=== PATIENT | female | born 1985 | race Caucasian/White ===

== ENCOUNTER 2019-05-25 14:33 | Inpatient (IN) | payer MEDICAID, SELFPAY ==
[2019-05-28 06:00] VITALS: BP 112/76; PULSE 92; RESP 17; TEMP 36.8; O2SAT 98
[2019-05-28] MEDS: CLONazepam 1 mg Tablet PO ×3 (10:37→21:01)
[2019-05-28] MEDS: levETIRAcetam 500 mg Tablet PO ×2 (10:37→17:36)
[2019-05-28] MEDS: sertraline 50 mg Tablet PO (10:37)
[2019-05-28] MEDS: acetaminophen 325 mg Tablet 650 MG PO (13:28)
[2019-05-28] MEDS: loperamide 2 mg Capsule 4 MG PO (13:28)
[2019-05-28 14:00] VITALS: BP 120/85; PULSE 116; RESP 20; TEMP 36.7; O2SAT 91
--- NOTE | 2019-05-28 17:08 | PM.NPN ---
Subjective NPU Subjective: Interval history: The patient presents today reporting that she is doing fine. She reports that she had struggled with not having her medication and she came in and that has been taken care of. She is back on the medication and adjusting to those medications slowly. She reports that she currently finds herself homeless and that her plan is to get into an inpatient psychiatric facility. We were able to further discuss that and tease out that she means and [facility] or a Residential Treatment Facility of some sort. We discussed the fact that, generally speaking, that takes time and is not something that is done quickly or even during a hospitalization. Her response to that was that if she leaves here she will be homeless. She reports that she talked to an Nilsa, at [facility], and [place], and they reportedly told her that they may have a spot for her, that she could return to. We discussed the risks, benefits, and alternatives of working with social work to tease that out, but also, we discussed that fact that her insurance would not allow her to stay inpatient, waiting for that bed, just because she has nowhere else to go. So she needs to start looking at what options she can do for the short run, even if that is the plan for discharge. She reports that she is tolerating the medication. We agreed that I would explore what the time frame was since her last increase in the Zoloft, and titrate if appropriate. Mental Status Exam MSE Comments: This is a morbidly obese, white female, with adequate dress, and limited grooming and eye contact. No abnormal movements, except for psychomotor retardation. Cooperative with exam in no acute distress. Speech was decreased rate and volume. Mood described as depressed; affect congruent. Thought process, organized. Thought content: patient denied any suicidal or homicidal ideation, there were no delusions reported or noted, patient denied any auditory or visual hallucinations. Attention, concentration, and memory appeared intact but were not formally tested. Alert and oriented times three. Insight and judgment are limited. Vitals/I&O/Wt Last Vital Signs Temp 98.0 F 05/28/19 14:00 Pulse 116 H 05/28/19 14:00 Resp 20 H 05/28/19 14:00 BP 120/85 05/28/19 14:00 Pulse Ox 91 05/28/19 14:00 Weight last 48 hrs Weight 181.437 kg A&P Additional A&P Information Additional A&P Information: This is a 33 year old, white female, with schizophrenia versus schizoaffective disorder, depressed type, post traumatic stress disorder, and possibly some Cluster B pathology, who presents with her medications reestablished, with reports of lessening of any auditory hallucinations, but concerned about the next step after discharge from inpatient hospitalization. Continue current medication. Will wait but likely increase Zoloft tomorrow. Encourage individual, group, and milieu therapy. Continue q 15-minute checks. Will work with social work to explore whether [facility], or any options exist for Ada that will not be time averse. Involuntary Hold Information 96 Hour Hold: 96 Hour Involuntary Admission: No Attestations NPU Medical Necessity Statement*: Inpatient hospitalization is medically necessary and the clinically appropriate intervention at this time. We will continue to monitor medications and titrate to effect. Likely length of stay is two to four days. Coding Level of Care Code Acute Controls Design Engineer for Jaye Rascon
[2019-05-28 20:20] VITALS: BP 111/71; PULSE 106; RESP 21; TEMP 36.6; O2SAT 91
[2019-05-28] MEDS: prazosin 5 mg Capsule 10 MG PO (21:01)
[2019-05-28] MEDS: mirtazapine 30 mg Tablet PO (21:01)
[2019-05-29 06:00] VITALS: BP 123/75; PULSE 103; RESP 24; TEMP 36.6; O2SAT 91
[2019-05-29] MEDS: CLONazepam 1 mg Tablet PO ×3 (08:42→20:54)
[2019-05-29] MEDS: levETIRAcetam 500 mg Tablet PO ×2 (08:42→17:43)
[2019-05-29] MEDS: sertraline 50 mg Tablet PO (08:42)
--- NOTE | 2019-05-29 13:05 | P.PN_ITS ---
Subjective NPU Subjective: Interval history: Ada presents today reporting that things are going okay. She endorses some lingering depression but has worries about placement. She reports that she called [facility] in [place] and endorsed that they say that her returning is a possibility. Treatment team work to make a connection on that issue now that the holidays are over. She reports she spoke to an Renea. Otherwise we discussed the fact that it would take time for her to adjust the medication and get the desired effect Mental Status Exam MSE Comments: This is a morbidly obese, white female, with adequate dress, and limited grooming and eye contact. No abnormal movements, except for psychomotor retardation. Cooperative with exam in no acute distress. Speech was decreased rate and volume. Mood described as crappy; affect congruent. Thought process, organized. Thought content: patient denied any suicidal or homicidal ideation, there were no delusions reported or noted, patient denied any auditory or visual hallucinations. Attention, concentration, and memory appeared intact but were not formally tested. Alert and oriented times three. Insight and judgment are limited. Vitals/I&O/Wt Last Vital Signs Temp 97.8 F 05/29/19 19:49 Pulse 94 05/29/19 19:49 Resp 21 H 05/29/19 19:49 BP 107/66 05/29/19 19:49 Pulse Ox 91 05/29/19 19:49 A&P Additional A&P Information Additional A&P Information: This is a 33 year old, white female, with schizophrenia versus schizoaffective disorder, depressed type, post traumatic stress disorder, and possibly some Cluster B pathology, who presents with her medications reestablished, with reports of lessening of any auditory hallucinations, but concerned about the next step after discharge from inpatient hospitalization. Continue current medication. Consider increase in Zoloft tomorrow. Encourage individual, group, and milieu therapy. Continue q 15-minute checks. Will work with social work to explore whether [facility], or any options exist for Ada that will not be time averse. Involuntary Hold Information 96 Hour Hold: 96 Hour Involuntary Admission: No Attestations NPU Medical Necessity Statement*: Inpatient hospitalization is medically necessary and the clinically appropriate intervention at this time. We will monitor the medications which have been reinstated. We will work with the outpatient resources for possible placement hopefully avoiding her having to have a period of homelessness. Likely length of stay 2 to 4 days. Coding Level of Care Code Acute Fight Manager for Jaye Rascon
[2019-05-29 14:00] VITALS: BP 137/86; PULSE 111; RESP 20; TEMP 37.2; O2SAT 93
[2019-05-29 19:49] VITALS: BP 107/66; PULSE 94; RESP 21; TEMP 36.6; O2SAT 91
[2019-05-29] MEDS: mirtazapine 30 mg Tablet PO (20:54)
[2019-05-29] MEDS: prazosin 5 mg Capsule 10 MG PO (20:54)
[2019-05-30 06:00] VITALS: BP 136/87; PULSE 103; RESP 21; TEMP 36.6; O2SAT 91
[2019-05-30] MEDS: levETIRAcetam 500 mg Tablet PO ×2 (08:21→17:09)
[2019-05-30] MEDS: CLONazepam 1 mg Tablet PO ×3 (08:21→22:18)
--- NOTE | 2019-05-30 10:11 | PC.SOCIAL ---
Patient did not attend morning group.
[2019-05-30] MEDS: loperamide 2 mg Capsule 4 MG PO (12:39)
[2019-05-30 12:58] VITALS: BP 112/74; PULSE 94; RESP 19; TEMP 36.4; O2SAT 92
[2019-05-30 13:00] VITALS: BP 112/74; PULSE 94; RESP 19; TEMP 36.4; O2SAT 92
--- NOTE | 2019-05-30 15:31 | PM.NPN ---
Subjective NPU Subjective: Interval history: Ada presents today reporting that she is optimistic that [facility] did not turn her down but she is feeling depressed today because she is thinking about the fact Sunday as her son's birthday and she lost parental rights to home to [facility]. She reports that she has other children there with her mom in [place]. She reports that she is having some serious axis X show thinking. Wondering what she don't do with her life moving forward. Not wanting to make some of the same mistakes she's made thus far and really in her head today. She reports she is eating fine and sleeping okay. Mental Status Exam MSE Comments: This is a morbidly obese, white female, with adequate dress, and limited grooming and eye contact. For hygiene to some degree is unclear she showered. No abnormal movements, except for psychomotor retardation. Cooperative with exam in mild distress. Speech was decreased rate and volume. Mood described as depressed; affect congruent and tearful. Thought process, organized. Thought content: patient denied any suicidal or homicidal ideation, there were no delusions reported or noted, patient denied any auditory or visual hallucinations. Attention, concentration, and memory appeared intact but were not formally tested. She is Alert and oriented times three. Insight and judgment are limited. 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 Continue current medication. Consider increase in medication Encourage individual, group, and milieu therapy. Continue q 15-minute checks. Will work with social work to explore whether [facility], or any options exist for Ada that will not be time averse. Involuntary Hold Information 96 Hour Hold: 96 Hour Involuntary Admission: No Attestations NPU Medical Necessity Statement*: Inpatient hospitalization is medically necessary and the clinically appropriate intervention at this time. We will monitor the medications which have been reinstated. We will work with the outpatient resources for possible placement hopefully avoiding her having to have a period of homelessness. Likely length of stay 2 to 4 days. Hopefully decision-makers will be available on Sunday and we can discharge Sunday or Sunday likely. Coding Level of Care Code Acute Plastic Tubing Insulation Supervisor for g Fwd Diagnoses Cluster B personality disorder F60.89 Schizoaffective disorder F25.9
[2019-05-30 20:13] VITALS: BP 100/63; PULSE 92; RESP 18; TEMP 36.9; O2SAT 95
[2019-05-30] MEDS: prazosin 5 mg Capsule 10 MG PO (22:18)
[2019-05-30] MEDS: mirtazapine 30 mg Tablet PO (22:18)
[2019-05-31 06:00] VITALS: BP 121/78; PULSE 87; RESP 20; TEMP 37; O2SAT 91
[2019-05-31] MEDS: CLONazepam 1 mg Tablet PO ×3 (09:23→20:45)
[2019-05-31] MEDS: levETIRAcetam 500 mg Tablet PO ×2 (09:23→17:42)
[2019-05-31 12:37] VITALS: BP 99/64; PULSE 98; RESP 20; TEMP 36.4; O2SAT 91
--- NOTE | 2019-05-31 16:35 | P.PN_ITS ---
Subjective NPU Subjective: Interval history: Ada presents today reporting that she has had a tough day today. She reports that she has been struggling with voices but as we further delved into the voices they appear to represent more negative self talk and self-loathing. The voices tell her to herself, showed up, you're worthless and things of that nature. We talked about the underpinnings of complicated trauma and personality disorders and the importance of doing homework and psychotherapy in getting through these things. We discussed the fact that often medications can set up a framework where in a person can begin to make changes real work is in these cognitive therapeutic sessions. She reports otherwise she was to return to [facility] because she feels that she did well there and that they were set up like that. We discussed the phone call we need to make with [facility] on Sunday. Mental Status Exam MSE Comments: This is a morbidly obese, white female, with adequate dress, and limited grooming and eye contact. Poor hygiene to some degree is unclear she has showered yet during this stay. No abnormal movements, except for psychomotor retardation. Cooperative with exam in mild distress. Speech was decreased rate and volume. Mood described as depressed; affect congruent and subdued. Thought process, organized. Thought content: patient denied any suicidal or homicidal ideation, there were no delusions reported or noted, patient denied visual but endorsed auditory hallucinations but it is unclear whether that is accurate or represents negative self talk were negative internal dialogue. Attention, concentration, and memory appeared intact but were not formally tested. She is Alert and oriented times three. Insight and judgment are limited. 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 Continue current medication. Consider increase in medication Encourage individual, group, and milieu therapy. Continue q 15-minute checks. Will work with social work to explore whether [facility], or any options exist for Ada that will not be time averse. Involuntary Hold Information 96 Hour Hold: 96 Hour Involuntary Admission: No Attestations NPU Medical Necessity Statement*: Inpatient hospitalization is medically necessary and the clinically appropriate intervention at this time. We will monitor the medications and titrate to effect We will work with the outpatient resources for possible placement hopefully avoiding her having to have a period of homelessness. Likely length of stay 2 to 4 days. Hopefully decision-makers will be available on Sunday and we can discharge Sunday or Sunday likely. Coding Level of Care Code Acute Road Engineer for Jaye Rascon
[2019-05-31 19:31] VITALS: BP 146/91; PULSE 97; RESP 17; TEMP 36.6; O2SAT 93
[2019-05-31] MEDS: mirtazapine 30 mg Tablet PO (20:45)
[2019-05-31] MEDS: prazosin 5 mg Capsule 10 MG PO (20:46)
[2019-06-01 06:00] VITALS: BP 136/83; PULSE 73; RESP 18; TEMP 36.6; O2SAT 92
[2019-06-01] MEDS: levETIRAcetam 500 mg Tablet PO ×2 (08:59→17:31)
[2019-06-01] MEDS: CLONazepam 1 mg Tablet PO ×3 (09:12→21:11)
[2019-06-01 13:45] VITALS: BP 117/77; PULSE 95; RESP 20; TEMP 36.4; O2SAT 91
--- NOTE | 2019-06-01 16:35 | PM.NPN ---
Subjective NPU Subjective: Interval history: Ada presented today reporting that there had been no significant changes since yesterday. She does not seem to be lingering more of the issue of her son like she had the day before. She seemed to be fairly focused on getting to tomorrow being able to possibly talk to [facility] and move forward with her life. She reports that she is eating and sleeping fine. Mental Status Exam MSE Comments: This is a morbidly obese, white female, with adequate dress, and limited grooming and eye contact. Limited hygiene. No abnormal movements, except for psychomotor retardation. Cooperative with exam in no acute distress. Speech was decreased rate and volume. Mood described as no change; affect congruent and subdued. Thought process, organized. Thought content: patient denied any suicidal or homicidal ideation, there were no delusions reported or noted, patient denied visual but endorsed auditory hallucinations but it is unclear whether that is accurate or represents negative self talk were negative internal dialogue. Attention, concentration, and memory appeared intact but were not formally tested. She is Alert and oriented times three. Insight and judgment are limited. Vitals/I&O/Wt Last Vital Signs Temp 97.6 F 06/01/19 13:45 Pulse 95 06/01/19 13:45 Resp 20 H 06/01/19 13:45 BP 117/77 06/01/19 13:45 Pulse Ox 91 06/01/19 13:45 Weight last 48 hrs Weight 170.641 kg Weight 170.641 kg Weight 170.641 kg A&P Additional A&P Information Additional A&P Information: Additional A&P Information: This is a 33 year old, white female, with schizophrenia versus schizoaffective disorder, depressed type, post traumatic stress disorder, and some Cluster B pathology, who presents with her medications reestablished, with reports of lessening of any auditory hallucinations, but concerned about the next step after discharge from inpatient hospitalization. Continue current medication. Consider increase in medication Encourage individual, group, and milieu therapy. Continue q 15-minute checks. Will work with social work to explore whether [facility], or any options exist for Ada that will not be time averse. Involuntary Hold Information 96 Hour Hold: 96 Hour Involuntary Admission: No Attestations NPU Medical Necessity Statement*: Inpatient hospitalization is medically necessary and the clinically appropriate intervention at this time. We will monitor the medications and titrate to effect We will work with the outpatient resources for possible placement hopefully avoiding her having to have a period of homelessness. Likely length of stay 1-3 days. Hopefully decision-makers will be available on Sunday and we can discharge Sunday or Sunday likely. Coding Level of Care Code Acute Bait Tier for Jaye Rascon
--- NOTE | 2019-06-01 19:18 | XRR_ITS ---
PROCEDURE INFORMATION: Exam: XR Left Humerus Exam date and time: 06/01/2019 8:04 PM Age: 33 years old Clinical indication: Injury or trauma; Fall; Initial encounter; Abrasion; Arm, upper; Left TECHNIQUE: Imaging protocol: XR Left humerus Views: 2 or more views. COMPARISON: No relevant prior studies available. FINDINGS: Bones/joints: No acute fracture. No dislocation. Normal bone mineralization. No joint effusion. Joint spaces are maintained. Lungs: The visualized left lung is clear. Soft tissues: No soft tissue swelling. No radiopaque foreign body. XR/[place] [id number] IMPRESSION: No acute fracture. Followup imaging recommended in 7-14 days if clinical concern for fracture persists.
--- NOTE | 2019-06-01 19:21 | XRR_ITS ---
PROCEDURE INFORMATION: Exam: XR Cervical Spine, 2 or 3 Views Exam date and time: 06/01/2019 8:04 PM Age: 33 years old Clinical indication: Injury or trauma; Fall; Initial encounter; Abrasion TECHNIQUE: Imaging protocol: XR of the cervical spine, 2 or 3 views. COMPARISON: No relevant prior studies available. FINDINGS: Vertebrae: The cervical spine is visualized to the C6-C7 intervertebral disc space level on the lateral image. There is no acute fracture in the visualized cervical spine, however injury in the lower cervical spine and cervicothoracic junction cannot be ruled out. Lungs: Visualized lungs are clear. Soft tissues: No soft tissue swelling. No radiopaque foreign body. XR/XR cervical spine 2V* [id number] IMPRESSION: The cervical spine is visualized to the C6-C7 intervertebral disc space level on the lateral image. There is no acute fracture in the visualized cervical spine, however injury in the lower cervical spine and cervicothoracic junction cannot be ruled out. Further evaluation with CT scan of the cervical spine is recommended if there is continuing clinical concern for fracture.
--- NOTE | 2019-06-01 19:22 | CTR_ITS ---
PROCEDURE INFORMATION: Exam: CT Head Without Contrast Exam date and time: 06/01/2019 7:24 PM Age: 33 years old Clinical indication: Injury or trauma; Fall; Initial encounter; Abrasion; Head, generalized TECHNIQUE: Imaging protocol: Computed tomography of the head without contrast. Sagittal and coronal reformatted images were created and reviewed. Total DLP: 799.04 mGy-cm Radiation optimization: All CT scans at this facility use at least one of these dose optimization techniques: automated exposure control; mA and/or kV adjustment per patient size (includes targeted exams where dose is matched to clinical indication); or iterative reconstruction. COMPARISON: No relevant prior studies available. FINDINGS: Brain: No acute intracranial hemorrhage. No acute infarct. No intra-axial or extra-axial masses. Rivers-white matter differentiation is preserved. No cerebral edema. No extra-axial fluid collections. No evidence for Chiari 1 malformation. Midline shift: No midline shift. Ventricles: No hydrocephalus. Bones/joints: No acute fracture. Sinuses: Visualized paranasal sinuses are clear. Mastoid air cells: Visualized mastoid air cells are clear. Orbits: No acute abnormality in the visualized orbits. Soft tissues: The extracranial soft tissues are unremarkable. CT/CT head wo con* [id number] IMPRESSION: No acute abnormality of the brain. Radiation Dose CTDIVOL = (mGy): DLP = 799.04 (mGy-cm)
[2019-06-01 20:42] VITALS: BP 154/106; PULSE 117; RESP 22; TEMP 36.4; O2SAT 95
[2019-06-01] MEDS: acetaminophen 325 mg Tablet 650 MG PO (21:10)
[2019-06-01] MEDS: mirtazapine 30 mg Tablet PO (21:10)
[2019-06-01] MEDS: prazosin 5 mg Capsule 10 MG PO (21:10)
[2019-06-01 22:27] VITALS: BP 136/90; PULSE 104; RESP 21; TEMP 36.6; O2SAT 96
[2019-06-02 05:56] VITALS: BP 123/83; PULSE 88; RESP 20; TEMP 36.6; O2SAT 90
[2019-06-02] MEDS: levETIRAcetam 500 mg Tablet PO ×2 (09:10→17:25)
[2019-06-02] MEDS: CLONazepam 1 mg Tablet PO ×3 (09:10→21:13)
[2019-06-02] MEDS: ibuprofen 600 mg Tablet PO ×3 (09:10→20:47)
--- NOTE | 2019-06-02 11:42 | P.PN_ITS ---
Subjective NPU Subjective: Interval history: Ada presents today reporting that she is doing fine and she is focused on hopefully getting reconnected with [facility] with an interview tomorrow. She feels the medications are helpful slowly but she reports that she is eating fine and sleeping better. Later in the evening after she had been seen she reportedly slipped and fell while moving and she on her bed she did not lose consciousness. However she did report dizziness and aching in her head pain in her arm. Studies were ordered which came back negative except for possible sign of neck sprain. Mental Status Exam MSE Comments: This is a morbidly obese, white female, with adequate dress, and limited grooming and eye contact. Limited hygiene. No abnormal movements, except for psychomotor retardation. Cooperative with exam in no acute distress. Speech was decreased rate and volume but improving. Mood described as okay; affect congruent and subdued. Thought process, organized. Thought content: patient denied any suicidal or homicidal ideation, there were no delusions reported or noted, patient denied visual but endorsed auditory hallucinations but it is unclear whether that is accurate or represents negative self talk were negative internal dialogue, she did report these were somewhat decreased today. Attention, concentration, and memory appeared intact but were not formally tested. She is Alert and oriented times three. Insight and judgment are limited. Vitals/I&O/Wt Last Vital Signs Temp 97.7 F 06/03/19 06:00 Pulse 82 06/03/19 06:00 Resp 22 H 06/03/19 06:00 BP 145/80 06/03/19 06:00 Pulse Ox 94 06/03/19 06:00 A&P Additional A&P Information Additional A&P Information: This is a 33 year old, white female, with schizophrenia versus schizoaffective disorder, depressed type, post traumatic stress disorder, and some Cluster B pathology, who presents with her medications reestablished, with reports of lessening of any auditory hallucinations, but concerned about the next step after discharge from inpatient hospitalization. Continue current medication. Consider increase in medication Encourage individual, group, and milieu therapy. Continue q 15-minute checks. Awaiting word from [facility] with planned conversation tomorrow about whether or not she could return. Involuntary Hold Information 96 Hour Hold: 96 Hour Involuntary Admission: No Attestations NPU Medical Necessity Statement*: Inpatient hospitalization is medically necessary and the clinically appropriate intervention at this time. We will monitor the medications and titrate to effect We will work with the outpatient resources for possible placement hopefully avoiding her having to have a period of homelessness. Likely length of stay 1-3 days. Awaiting conversation with director tomorrow when returned from vacation. Hope for discharge Sunday or Sunday. Coding Level of Care Code Acute Parachute Crown Sewer for Jaye Rascon
--- NOTE | 2019-06-02 11:48 | P.PN_ITS ---
Subjective NPU Subjective: Interval history: Ada presents today reporting that she is a little disappointed that the person over at [facility] not available but she is hopeful that tomorrow will bring freedom. She is reporting that she is feeling a little better and feel like the medication going in the right direction. She says she just has to but her lora in God everything will work out tomorrow. She reports she is doing fine with the medication for her fall. Mental Status Exam MSE Comments: This is a morbidly obese, white female, with adequate dress, and limited grooming and eye contact. Somewhat improved hygiene. No abnormal movements, except for psychomotor retardation which is improving. Cooperative with exam in no acute distress. Speech was decreased rate and volume but imp roving. Mood described as okay; affect congruent and subdued. Thought process, organized. Thought content: patient denied any suicidal or homicidal ideation, there were no delusions reported or noted, patient denied auditory visual hallucinations. Attention, concentration, and memory appeared intact but were not formally tested. She is Alert and oriented times three. Insight and judgment are limited but improving. Vitals/I&O/Wt Last Vital Signs Temp 97.7 F 06/03/19 06:00 Pulse 82 06/03/19 06:00 Resp 22 H 06/03/19 06:00 BP 145/80 06/03/19 06:00 Pulse Ox 94 06/03/19 06:00 A&P Additional A&P Information Additional A&P Information: This is a 33 year old, white female, with schizophrenia versus schizoaffective disorder, depressed type, post traumatic stress disorder, and some Cluster B pathology, who presents with her medications reestablished, with reports of lessening of any auditory hallucinations, but concerned about the next step after discharge from inpatient hospitalization. Continue current medication. Encourage individual, group, and milieu therapy. Continue q 15-minute checks. Awaiting word from [facility] with planned conversation tomorrow about whether or not she could return. Involuntary Hold Information 96 Hour Hold: 96 Hour Involuntary Admission: No Attestations NPU Medical Necessity Statement*: Inpatient hospitalization is medically necessary and the clinically appropriate intervention at this time. We will monitor the medications and titrate to effect We will work with the outpatient resources for possible placement hopefully avoiding her having to have a period of home lessness. Likely length of stay 1-2 days. Awaiting conversation with director tomorrow when returned from vacation. Hope for discharge Sunday or Sunday. Coding Level of Care Code Acute Retail Department Reset for Jaye Rascon
[2019-06-02 13:24] VITALS: BP 126/85; PULSE 104; RESP 20; TEMP 36.5; O2SAT 95
[2019-06-02 20:28] VITALS: BP 137/93; PULSE 101; RESP 22; TEMP 36.4; O2SAT 92
[2019-06-02] MEDS: mirtazapine 30 mg Tablet PO (20:46)
[2019-06-02] MEDS: prazosin 5 mg Capsule 10 MG PO (20:48)
[2019-06-03 06:00] VITALS: BP 145/80; PULSE 82; RESP 22; TEMP 36.5; O2SAT 94
[2019-06-03] MEDS: ibuprofen 600 mg Tablet PO ×3 (08:40→20:44)
[2019-06-03] MEDS: levETIRAcetam 500 mg Tablet PO ×2 (08:41→17:35)
[2019-06-03] MEDS: CLONazepam 1 mg Tablet PO ×3 (08:41→20:44)
--- NOTE | 2019-06-03 10:39 | P.PN_ITS ---
Subjective NPU Subjective: Interval history: Ada presents today excited about the fact that there was a discharge option to allow her to address some important issues. Namely she has some charges that are pending and she has to deal with and there are addiction elements of it and we have found her a rehabilitation center which will allow her to take care of something that will help her and will likely also not hurt her appearance before the court having managed this issue at this time and not after it was court mandated. She was set for discharge but her Medicaid ride did not come in so she had to stay as there was no other alternative. Mental Status Exam MSE Comments: This is a morbidly obese, white female, with adequate dress, and limited grooming and eye contact. Somewhat improved hygiene. No abnormal movements, except for psychomotor retardation which is improving. Cooperative with exam in no acute distress. Speech was decreased rate and volume but improving. Mood described as much better; affect congruent and subdued. Thought process, organized. Thought content: patient denied any suicidal or homicidal ideation, there were no delusions reported or noted, patient denied auditory visual hallucinations. Attention, concentration, and memory appeared intact but were not formally tested. She is Alert and oriented times three. Insight and judgment are limited but improving. Vitals/I&O/Wt Last Vital Signs Temp 97.9 F 06/04/19 06:00 Pulse 20 L 06/04/19 06:00 Resp 20 H 06/04/19 06:00 BP 123/75 06/04/19 06:00 Pulse Ox 91 06/04/19 06:00 A&P Additional A&P Information Additional A&P Information: This is a 33 year old, white female, with schizophrenia versus schizoaffective disorder, depressed type, post traumatic stress disorder, and some Cluster B pathology, who presents with her medications reestablished, with reports of lessening of any auditory hallucinations, but concerned about the next step after discharge from inpatient hospitalization. Was scheduled to leave for rehabilitation today but her ride from Medicaid and she'll also show after discharge tomorrow. Continue current medication. Encourage individual, group, and milieu therapy. Continue q 15-minute checks. Was accepted at an inpatient rehabilitation. Involuntary Hold Information 96 Hour Hold: 96 Hour Involuntary Admission: No Attestations NPU Medical Necessity Statement*: Inpatient hospitalization is medically necessary and the clinically appropriate intervention at this time. We will monitor the medications and titrate to effect We will work with the outpatient resources for possible placement hopefully avoiding her having to have a period of homelessness. She was scheduled for discharge today however her Medicaid ride did not show up so she will be discharged tomorrow morning. Coding Level of Care Code Acute Chucking And Sawing Machine Operator for Jaye Rascon
[2019-06-03 13:42] VITALS: BP 115/79; PULSE 92; RESP 20; TEMP 36.3; O2SAT 97
--- NOTE | 2019-06-03 16:05 | DCPLANNER ---
Medicaid ride called, trip ID #[id number]. Ride should arrive no later than 7:04pm. Number for Where's my ride is .
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
[2019-06-03 16:46] VITALS: BP 115/79; PULSE 92; RESP 20; TEMP 36.3; O2SAT 97
[2019-06-03] MEDS: mirtazapine 30 mg Tablet PO (20:44)
[2019-06-03] MEDS: prazosin 5 mg Capsule 10 MG PO (20:44)
--- NOTE | 2019-06-03 21:05 | PC.NURSE ---
Called for update on medicaid ride at 1914 and was told not dispatched yet to call back in an hour. Called again at 2034 and still not dispatched but moved to top of list. At 2104 called to say they were not able to provide a ride for the patient. Dr Erwin notified. Waiting for response.
[2019-06-03 21:09] VITALS: BP 138/85; PULSE 115; RESP 20; TEMP 36.5; O2SAT 94
[2019-06-04 06:00] VITALS: BP 123/75; PULSE 20; PULSE 85; RESP 20; TEMP 36.6; O2SAT 91
[2019-06-04] MEDS: ibuprofen 600 mg Tablet PO ×2 (08:53→14:54)
[2019-06-04] MEDS: levETIRAcetam 500 mg Tablet PO (08:54)
[2019-06-04] MEDS: CLONazepam 1 mg Tablet PO ×2 (08:54→14:54)
[2019-06-04 14:00] VITALS: BP 130/83; PULSE 116; RESP 20; TEMP 36.7; O2SAT 94
== END 2019-06-04 16:45 | disposition home or self-care (01) | DRG 885 ==
PROVIDERS: Visit Provider Psychiatry & Neurology Psychiatry
DX: F29 Unspecified psychosis not due to a substance or known physiological condition (principal); R45.851 Suicidal ideations; Z68.44 Body mass index [BMI] 60.0-69.9, adult; F25.9 Schizoaffective disorder, unspecified; F60.89 Other specific personality disorders; F32.9 Major depressive disorder, single episode, unspecified; E66.01 Morbid (severe) obesity due to excess calories
CPT/HCPCS: 70450; 72040; 73060; 99232; 99233; Q0161